=== PATIENT | female | born 2000 | race Caucasian/White ===

== ENCOUNTER 2022-11-13 23:16 | Inpatient (IN) ==
[2022-11-13] MEDS ORDERED: OXYTOCIN 30 UNITS/500 ML BAG IV PRN ×2 (23:43→23:46)
[2022-11-13] MEDS ORDERED: LIDOCAINE 1% LOCAL 20 ML VIAL INFIL PRN (23:43)
--- NOTE | 2022-11-13 23:43 | History & Physical Report ---
Date of Service November 13, 2022 Assessment & Plan (1) Premature rupture of membranes: Plan: Admit, routine labs, COVID swab Start oxytocin for augmentation Epidural if patient requests Anticipate spontaneous vaginal delivery (2) Anxiety and depression: Plan: Continue Wellbutrin 150 mg daily History of Present Illness Chief Complaint: LOF Primary Care Provider: Marco Soto PA-C Patient is 22-year-old -0-2-0 at 39 weeks and 0 days dated by last menstrual period consistent with 8-week ultrasound who presents for leaking of fluid. States she had a big cut of fluid at approximately 9:30 PM. Did have blood tinged discharge last night and this morning, denies heavy vaginal bleeding. Notes good movement. Is having irregular contractions. has been complicated by anxiety and depression which she is on Wellbutrin, and had an ASCUS with high risk HPV positive Pap Allergies Allergy/AdvReac Type Severity Reaction Status Date / Time No Known Allergies Allergy Unverified 11/13/22 23:25 Home Medications Medication Instructions Recorded Confirmed Type bupropion HCl 150 mg tablet,12 hr 150 mg PO DAILY 11/13/22 11/13/22 History sustained-release (Wellbutrin SR) calcium 250 mg tablet 200 mg PO DAILY 11/13/22 11/13/22 History folic acid 5 mg capsule 5 mg PO DAILY 11/13/22 11/13/22 History vit no.95-ferrous 1 tab PO DAILY 11/13/22 11/13/22 History fumarate 28 mg-folic acid 800 mcg tablet () Patient History Medical History Anxiety and depression Surgical History [place] teeth extracted Family History Grandmother (Paternal) Diabetes Grandmother (Maternal) Diabetes Social History Smoking Status: Former smoker Tobacco Type: E-cigarettes / Vaping Hx Alcohol Use: No Hx Substance Use: No Preferred Language: Upper Sorbian Beliefs That Will Affect Care: None marital status: Single marital status details: Trevor Hurt [phone] Current Living Situation: Significant Other current occupational status: employed current occupation: [employer] Other Information That Helps Us Care for You: No Feels Safe at Home: Yes Safety Concerns: Feels Safe At This Time Diet: regular Gender Identity: Female OB History SNAG GRINDER History Se record Review of Systems All systems reviewed & are unremarkable except as noted in HPI & below Physical Exam Constitutional: WD/WN, vitals as above Respiratory: normal respiratory effort, lungs clear to auscultation Cardiovascular: RRR, no murmur, no edema Gastrointestinal (Abdomen): normal bowel sounds, soft, nontender, no hepatosplenomegaly EFW 3200g Genitourinary: Sterile speculum exam: Grossly ruptured with clear fluid Cervix: 2/60/-3 anterior and soft cephalic IUPC placed without difficulty Monitoring External Monitor heart tracing: Baseline 150, moderate variability, positive accelerations no decelerations, currently category 1 tracing Tocodynamometer Irritable
[2022-11-13] MEDS: LACTATED RINGER'S 1,000 ML IV PRN (23:55)
[2022-11-14 00:28] LABS: Hematocrit (blood only) 34.1 % (37.0-47.0); Hemoglobin 11.9 g/dl (12.0-16.0); Mean Corpuscular Hgb Conc 34.9 g/dL (32.0-36.0); Mean Corpuscular Volume 83.2 fL (80.0-100.0); Platelet Count 195 K/uL (130-400); RDW Coefficient of Variation 13.2 % (11.5-14.5); RDW Standard Deviation 39.8 fL (36.4-46.3); White Blood Count 9.63 K/ul (4.8-10.8)
[2022-11-14] MEDS ORDERED: SODIUM CHLORIDE 0.9% PF INJ 10 ML VIAL ONE (00:48)
[2022-11-14] MEDS ORDERED: LIDOCAINE 2%/EPINEPHRINE 1:200,000 20 ML PF ONE (00:49)
[2022-11-14] MEDS ORDERED: fentaNYL 2MCG/ML ROPIVACAINE 1.25MG/ML 100 ML BAG EPI ONE (00:50)
[2022-11-14] MEDS ORDERED: fentaNYL citrate PF 100 MCG/2 ML VIAL ONE (00:51)
[2022-11-14] MEDS ORDERED: BUPIVACAINE 0.25% PF 30 ML VIAL ONE (00:51)
[2022-11-14] MEDS ORDERED: ePHEDrine sulfate 50 MG/ML AMP ONE (00:52)
[2022-11-14 01:10] LABS: Alanine Aminotransferase 8 U/L (7-52); Albumin Globulin Ratio 1.1 (0.9-2); Albumin Level 3.2 gm/dl (3.4-5.0); Alkaline Phosphatase 168 U/L (34-104); Anion Gap 9 (3-11); Aspartate Aminotransferase 15 U/L (13-39); BUN Creatinine Ratio 16.3 (10-20); Bilirubin,Total 0.2 mg/dl (0.2-1.0); Blood Urea Nitrogen 7 mg/dl (6-23); Calcium 8.1 mg/dl (8.6-10.3); Carbon Dioxide 20 mmol/L (21-32); Chloride 109 mmol/L (98-107); Creatinine Clr Calc Pharmacy 180.5 ml/min; Est GFR (African American) > 150.0 ml/min; Est GFR (Non-African American) 143.4 ml/min; Globulin 2.9 gm/dl (2.5-4.0); Glucose 101 mg/dl (70-99(Fasting)); Potassium 3.4 mmol/L (3.5-5.1); Sodium 138 mmol/L (136-145); Total Protein 6.1 gm/dl (6.0-8.3)
[2022-11-14 01:15] LABS: Total Protein Urine Random 16.5 mg/dl (0-11.9)
--- NOTE | 2022-11-14 01:15 | Anesthesiology Consultation ---
Date of Service November 14, 2022 Assessment & Plan Chart Review Chart Review: Acceptable Risk for Labor Epidural Consults Requested none ASA ASA2 Proposed Anesthesia Anesthesia Type: Labor Epidural Risk / Benefits Reviewed With: PT / POA / Parent / Guardian, Accepts Plan and Informed Consent Obtained History Height/Weight Height: 5 ft 2 in Weight: 65.317 kg Allergies Allergy/AdvReac Type Severity Reaction Status Date / Time No Known Allergies Allergy Unverified 11/13/22 23:25 Medications Home Medications Medication Instructions Recorded Confirmed Last Taken calcium 250 mg tablet 200 mg PO DAILY 11/13/22 11/13/22 11/11/22 09:00 folic acid 5 mg capsule 5 mg PO DAILY 11/13/22 11/13/22 11/11/22 09:00 vit no.95-ferrous 1 tab PO DAILY 11/13/22 11/13/22 11/11/22 09:00 fumarate 28 mg-folic acid 800 mcg tablet () bupropion HCl 150 mg 24 hr tablet, 150 mg PO DAILY 11/14/22 11/14/22 Unknown extended release Active Medications Generic Name Dose Route Start Last Admin Trade Name Freq PRN Reason Stop Dose Admin Lactated Ringer's 1,000 mls @ 125 mls/hr 11/13/22 23:43 11/14/22 00:42 Lr IV 11/15/22 23:42 999 mls/hr .Q8H PRN Infusion L&D Protocol Protocol NPO Date Last Intake of Fluids: 11/14/22 Time Last Intake of Fluids: 00:00 Date Last Intake of Solids: 11/13/22 Time Last Intake of Solids: 18:00 Past Medical History Medical History Anxiety and depression Exercise / Class Metabolic Activity II 4-5 Yardwork/Stairs/Walk up hill Past Family History Family History Grandmother (Paternal) Diabetes Grandmother (Maternal) Diabetes Past Surgical History Surgical History [place] teeth extracted Past Anesthesia History No Hx of Anesthesia Complications and No Family Hx of Anesthesia Complications History of PONV No Hx of PONV and No Hx of Motion Sickness Social History Smoking Status: Former smoker Hx Alcohol Use: No Hx Substance Use: No Physical Exam Vital Signs Last Vital Signs Temp 37.0 C 11/13/22 23:34 Pulse 80 11/14/22 01:10 Resp 18 11/13/22 23:34 BP 140/95 11/14/22 00:25 Pulse Ox 100 11/14/22 01:10 ENMT Mouth: no TMJ abnormality Thyromental Distance: > or= 3.5 Finger Breadths Mallampati Class: II Neck normal visual inspection and trachea midline; neck extension not limited Respiratory normal respiratory effort Auscultation: lungs clear to auscultation bilaterally Cardiovascular Rate/Rhythm: regular rate and regular rhythm Heart Sounds: no murmur Musculoskeletal Spine: normal cervical ROM Extremities: full ROM of extremities Neurologic moves all extremities Psychiatric Orientation: alert and oriented x 3 Testing Laboratory Results 11/13/22 23:54 11/14/22 00:01
[2022-11-14 01:20] LABS: Creatinine Urine Random 75.2 mg/dl; Protein Creatinine Ratio Urine 0.2 (0-0.2)
[2022-11-14] MEDS ORDERED: ROPIVACAINE 0.5% PF 5 MG/ML 20 ML VIAL EPI PRN (01:44)
[2022-11-14] MEDS ORDERED: NALOXONE HCL 0.4 MG/1 ML VIAL/CARP IV PRN (01:44)
[2022-11-14] MEDS ORDERED: fentaNYL 2MCG/ML ROPIVACAINE 1.25MG/ML 100 ML BAG EPI PRN (01:44)
[2022-11-14] MEDS ORDERED: ONDANSETRON INJ 2 MG/ML 2 ML VIAL IV PRN (01:44)
[2022-11-14] MEDS ORDERED: ePHEDrine sulfate 50 MG/ML AMP IV PRN (01:44)
[2022-11-14] MEDS ORDERED: SODIUM CHLORIDE 0.9% PF INJ 10 ML VIAL EPI STA (01:44)
[2022-11-14] MEDS ORDERED: BUPIVACAINE 0.25% PF 30 ML VIAL EPI PRN (01:44)
[2022-11-14] MEDS ORDERED: BUPIVACAINE 0.25% PF 30 ML VIAL EPI STA (01:44)
[2022-11-14] MEDS ORDERED: NALOXONE HCL 1 MG in SODIUM CHLORIDE 0.9% 1000ML 1,000 ML IV PRN (01:44)
[2022-11-14] MEDS ORDERED: diphenhydrAMINE 50 MG/ML VIAL IV PRN (01:44)
[2022-11-14] MEDS ORDERED: fentaNYL citrate PF 100 MCG/2 ML VIAL EPI STA (01:44)
[2022-11-14] MEDS ORDERED: NALBUPHINE HCL INJ 10 MG/ML AMP IV PRN (01:44)
[2022-11-14] MEDS ORDERED: fentaNYL citrate PF 100 MCG/2 ML VIAL EPI PRN (01:44)
[2022-11-14] MEDS ORDERED: SODIUM CHLORIDE 0.9% PF INJ 10 ML VIAL EPI PRN (01:44)
[2022-11-14] MEDS ORDERED: LIDOCAINE 2%/EPINEPHRINE 1:200,000 20 ML PF EPI STA (01:44)
[2022-11-14] MEDS ORDERED: METOCLOPRAMIDE HCL 20 MG in SODIUM CHLORIDE 0.9% 50 ML IV PRN (01:44)
[2022-11-14] MEDS ORDERED: LIDOCAINE 2% MPF LOCAL 5 ML VIAL EPI PRN (01:44)
[2022-11-14] MEDS: LACTATED RINGER'S 1,000 ML IV PRN (04:15)
[2022-11-14] MEDS ORDERED: CALCIUM CARBONATE 500 MG CHEWABLE TAB PO ONE (07:09)
[2022-11-14] MEDS ORDERED: DIPHTHERIA/TETANUS/PERTUSSIS 0.5mL SYR/VIAL (Age 7+yrs) IM ONE (07:49)
[2022-11-14] MEDS ORDERED: HYDROCORTISONE ACETATE 25 MG SUPP PR PRN (07:49)
[2022-11-14] MEDS ORDERED: OXYTOCIN 30 UNITS/500 ML BAG IV PRN (07:49)
[2022-11-14] MEDS ORDERED: BENZOCAINE 20% AER SPR 82.5 GM CAN EXT PRN (07:49)
[2022-11-14] MEDS ORDERED: bisacodyL 10 MG SUPP PR PRN (07:49)
--- NOTE | 2022-11-14 07:54 | Delivery Summary ---
Vaginal Delivery Summary Date of Service November 14, 2022 Vaginal Delivery Summary Delivery Note Patient admitted overnight with SROM and 2 cm. Declined Pitocin and made cervical change on her own to complete. Delivery Summary: Patient was placed in the dorsal lithotomy position. She was prepped and draped in the usual sterile fashion. Upon maternal pushing the head was delivered atraumatically followed by the anterior shoulders, posterior shoulders then the remainder of the infants body. Nuchal x1 with shoulder cord was removed. The was immediately placed on mother's abdomen, dried and stimulated. Delayed cord clamping for 60 seconds was performed. The infants mouth and nose were bulb suctioned by nursing staff. A female infant was delivered at 0733, weight pending with APGARS of 8 at 1 minute and 8 at 5 minutes. The infant was handed off to the awaiting nursing staff. Cord blood gases were not obtained. The placenta delivered intact with three vessel cord at 0740. Placenta was sent to pathology (hold). Thirty units of Pitocin were added to the IV fluid and allowed to run freely. Uterine massage was performed until uterus was deemed firm. Upon inspection of the perineum, vagina and cervix were intact. Second degree laceration was noted which was repaired with 2-0 vicryl in an interrupted fashion, and the remainder of the second-degree was pared with 3-0 Vicryl in the usual fashion. Upon re-inspection the patient was hemostatic. Uterus again massaged and found to be firm. Needle and sponge counts were correct. Patient was stable and allowed to recover in L&D room. was stable and remained in room with mother in the labor and delivery unit. EBL 300mls
[2022-11-14] MEDS ORDERED: buPROPion SR 150 MG TABCR PO SCH (09:00)
--- NOTE | 2022-11-14 09:18 | Anesthesia Procedure Note ---
Date of Service November 14, 2022 Anesthesia Post Epidural Note Vital Signs Vital Signs: Temp Pulse Resp BP Pulse Ox 37.0 C 72 20 101/53 L 97 11/14/22 07:15 11/14/22 09:06 11/14/22 07:30 11/14/22 09:06 11/14/22 07:46 Pain Intensity Bilateral Abdomen: Pain Intensity: 2 Notes Mental Status: alert / awake / arousable Nausea / Vomiting: adequately controlled Pain: adequately controlled Airway Patency, RR, SpO2: stable & adequate BP & HR: stable & adequate Hydration State: stable & adequate Neuraxial Anesthesia: was administered and sensory block is resolving Anesthetic Complications: no major complications apparent Epidural: Removed without complications and With tip intact
[2022-11-14] MEDS: IBUPROFEN 600 MG TAB PO PRN ×4 (09:30→23:23)
[2022-11-14] MEDS: buPROPion XL 150 MG TABCR PO SCH ×2 (11:13→14:33)
[2022-11-14] MEDS: FERROUS SULFATE 325 MG TAB PO SCH (11:13)
[2022-11-14] MEDS: PRENATAL VITAMIN 1 TAB PO SCH (11:13)
[2022-11-14] MEDS: DOCUSATE SODIUM 100 MG CAP PO SCH ×2 (11:13→20:27)
[2022-11-14] MEDS: ACETAMINOPHEN 325 MG TAB PO PRN ×2 (14:32→20:27)
[2022-11-15] MEDS: ACETAMINOPHEN 325 MG TAB PO PRN ×4 (03:20→23:12)
[2022-11-15] MEDS: IBUPROFEN 600 MG TAB PO PRN ×3 (06:16→18:48)
[2022-11-15 08:38] LABS: Hematocrit (blood only) 28.9 % (37.0-47.0); Hemoglobin 9.8 g/dl (12.0-16.0); Mean Corpuscular Hemoglobin 28.5 pg (25.0-34.0); Mean Corpuscular Hgb Conc 33.9 g/dL (32.0-36.0); Mean Platelet Volume 11.5 fL (9.4-12.4); Platelet Count 154 K/uL (130-400); RDW Coefficient of Variation 13.2 % (11.5-14.5); Red Blood Count 3.44 M/uL (4.20-5.40); White Blood Count 11.28 K/ul (4.8-10.8)
[2022-11-15] MEDS: PRENATAL VITAMIN 1 TAB PO SCH (08:58)
[2022-11-15] MEDS: DOCUSATE SODIUM 100 MG CAP PO SCH ×2 (08:58→20:39)
[2022-11-15] MEDS: FERROUS SULFATE 325 MG TAB PO SCH (08:58)
[2022-11-15] MEDS: buPROPion XL 150 MG TABCR PO SCH ×2 (08:59)
--- NOTE | 2022-11-15 11:13 | Obstetrical Progress Note ---
Date of Service November 15, 2022 Subjective Ambulation: ambulating normally Voiding: no voiding problems Passing Gas:: Yes Diet Tolerance:: regular diet Lochia:: Small Feeding Type:: bottle feeding Current Pain Level(1-10): 0 doing well. Physical Exam Constitutional WD/WN, vitals as above Gastrointestinal (Abdomen) soft and non-tender. fundus firm below U Musculoskeletal Extremities: extremities normal to inspection Skin no rashes, warm and dry Neurologic patellar DTR's 2+ bilat, sensation intact Psychiatric A+Ox3, euthymic affect Results & Data Vital Signs (Past 12 Hours) Vital Signs Temp Pulse Resp BP Pulse Ox O2 Del Method 11/15/22 08:30 36.8 C 69 16 107/66 Room Air 11/15/22 03:20 36.6 C 75 16 123/80 99 Room Air Laboratory Results 11/13/22 11/13/22 11/13/22 23:45 23:54 23:54 WBC 9.63 RBC 4.10 L Hgb 11.9 L Hct 34.1 L MCV 83.2 MCH 29.0 MCHC 34.9 RDW Std Deviation 39.8 RDW Coeff of Melecio 13.2 Plt Count 195 MPV 12.0 Sodium Potassium Chloride Carbon Dioxide Anion Gap BUN Creatinine Est Cr Clr Drug Dosing Est GFR ( Amer) Est GFR (Non-Af Amer) BUN/Creatinine Ratio Glucose Calcium Total Bilirubin AST ALT Alkaline Phosphatase Total Protein Albumin Globulin Albumin/Globulin Ratio Ur Random Creatinine U Random Total Protein Protein/Creatinin Ratio SARS-CoV-2, RNA, NAAT NEGATIVE Blood Type A Positive Antibody Screen NEGATIVE 11/14/22 11/14/22 11/15/22 00:01 00:39 08:15 WBC 11.28 H RBC 3.44 L Hgb 9.8 L Hct 28.9 L MCV 84.0 MCH 28.5 MCHC 33.9 RDW Std Deviation 40.0 RDW Coeff of Melecio 13.2 Plt Count 154 MPV 11.5 Sodium 138 Potassium 3.4 L Chloride 109 H Carbon Dioxide 20 L Anion Gap 9 BUN 7 Creatinine 0.43 L Est Cr Clr Drug Dosing 180.5 Est GFR ( Amer) > 150.0 Est GFR (Non-Af Amer) 143.4 BUN/Creatinine Ratio 16.3 Glucose 101 H Calcium 8.1 L Total Bilirubin 0.2 AST 15 ALT 8 Alkaline Phosphatase 168 H Total Protein 6.1 Albumin 3.2 L Globulin 2.9 Albumin/Globulin Ratio 1.1 Ur Random Creatinine 75.2 U Random Total Protein 16.5 H Protein/Creatinin Ratio 0.2 SARS-CoV-2, RNA, NAAT Blood Type Antibody Screen
[2022-11-15] MEDS ORDERED: bisacodyL 5 MG TABEC PO SCH (20:00)
[2022-11-16] MEDS ORDERED: diphenhydrAMINE Capsule 25 MG CAP PO STA (04:46)
[2022-11-16 06:36] LABS: Hematocrit (blood only) 29.2 % (37.0-47.0); Hemoglobin 10.1 g/dl (12.0-16.0)
[2022-11-16] MEDS: PRENATAL VITAMIN 1 TAB PO SCH (08:02)
[2022-11-16] MEDS: DOCUSATE SODIUM 100 MG CAP PO SCH (08:02)
[2022-11-16] MEDS: FERROUS SULFATE 325 MG TAB PO SCH (08:02)
[2022-11-16] MEDS: IBUPROFEN 600 MG TAB PO PRN (08:03)
[2022-11-16] MEDS: buPROPion XL 150 MG TABCR PO SCH ×2 (08:06→08:07)
--- NOTE | 2022-11-16 08:43 | Obstetrical Progress Note ---
Date of Service November 16, 2022 Assessment & Plan Admission and Anticipated Discharge Date Admission Date: November 13, 2022 Subjective Patient is seen and examined. She feels well, no complaints. Just tired from taking Benadryl last night. She has h/o depression and was on Wellbutrin, declined to start here. I offered her to restart but she still declines and desires to start when she will be discharged. She denies suicidal and homicidal thoughts. Declined psychiatry consultation. Wants to be discharged today. Ambulating without dizziness Voiding without difficulty Tolerating regular diet with out N&V Bleeding is minimal No fever/ chills/ CP/ SOB/ N&V/ Leg pain Bottle feeding without problems Vital Signs Temp Pulse Resp BP O2 Del Method 11/15/22 23:20 36.7 C 78 18 125/84 Room Air Lab Results 11/13/22 11/13/22 11/13/22 Range/Units 23:45 23:54 23:54 WBC (4.8-10.8) K/ul RBC (4.20-5.40) M/uL Hgb (12.0-16.0) g/dl Hct (37.0-47.0) % MCV (80.0-100.0) fL MCH (25.0-34.0) pg MCHC (32.0-36.0) g/dL RDW Std Deviation (36.4-46.3) fL RDW Coeff of Melecio (11.5-14.5) % Plt Count (130-400) K/uL MPV (9.4-12.4) fL Sodium (136-145) mmol/L Potassium (3.5-5.1) mmol/L Chloride (98-107) mmol/L Carbon Dioxide (21-32) mmol/L Anion Gap (3-11) BUN (6-23) mg/dl Creatinine (0.6-1.2) mg/dl Est Cr Clr Drug Dosing ml/min Est GFR ( Amer) ml/min Est GFR (Non-Af Amer) ml/min BUN/Creatinine Ratio (10-20) Glucose (70-99(Fasting)) mg/dl Calcium (8.6-10.3) mg/dl Total Bilirubin (0.2-1.0) mg/dl AST (13-39) U/L ALT (7-52) U/L Alkaline Phosphatase (34-104) U/L Total Protein (6.0-8.3) gm/dl Albumin (3.4-5.0) gm/dl Globulin (2.5-4.0) gm/dl Albumin/Globulin Ratio (0.9-2) Ur Random Creatinine mg/dl U Random Total Protein (0-11.9) mg/dl Protein/Creatinin Ratio (0-0.2) RPR Nonreactive (Nonreactive) SARS-CoV-2, RNA, NAAT NEGATIVE (NEGATIVE) Blood Type A Positive Antibody Screen NEGATIVE 11/13/22 11/14/22 11/14/22 Range/Units 23:54 00:01 00:39 WBC 9.63 (4.8-10.8) K/ul RBC 4.10 L (4.20-5.40) M/uL Hgb 11.9 L (12.0-16.0) g/dl Hct 34.1 L (37.0-47.0) % MCV 83.2 (80.0-100.0) fL MCH 29.0 (25.0-34.0) pg MCHC 34.9 (32.0-36.0) g/dL RDW Std Deviation 39.8 (36.4-46.3) fL RDW Coeff of Melecio 13.2 (11.5-14.5) % Plt Count 195 (130-400) K/uL MPV 12.0 (9.4-12.4) fL Sodium 138 (136-145) mmol/L Potassium 3.4 L (3.5-5.1) mmol/L Chloride 109 H (98-107) mmol/L Carbon Dioxide 20 L (21-32) mmol/L Anion Gap 9 (3-11) BUN 7 (6-23) mg/dl Creatinine 0.43 L (0.6-1.2) mg/dl Est Cr Clr Drug Dosing 180.5 ml/min Est GFR ( Amer) > 150.0 ml/min Est GFR (Non-Af Amer) 143.4 ml/min BUN/Creatinine Ratio 16.3 (10-20) Glucose 101 H (70-99(Fasting)) mg/dl Calcium 8.1 L (8.6-10.3) mg/dl Total Bilirubin 0.2 (0.2-1.0) mg/dl AST 15 (13-39) U/L ALT 8 (7-52) U/L Alkaline Phosphatase 168 H (34-104) U/L Total Protein 6.1 (6.0-8.3) gm/dl Albumin 3.2 L (3.4-5.0) gm/dl Globulin 2.9 (2.5-4.0) gm/dl Albumin/Globulin Ratio 1.1 (0.9-2) Ur Random Creatinine 75.2 mg/dl U Random Total Protein 16.5 H (0-11.9) mg/dl Protein/Creatinin Ratio 0.2 (0-0.2) RPR (Nonreactive) SARS-CoV-2, RNA, NAAT (NEGATIVE) Blood Type Antibody Screen 11/15/22 11/16/22 Range/Units 08:15 06:08 WBC 11.28 H (4.8-10.8) K/ul RBC 3.44 L (4.20-5.40) M/uL Hgb 9.8 L 10.1 L (12.0-16.0) g/dl Hct 28.9 L 29.2 L (37.0-47.0) % MCV 84.0 (80.0-100.0) fL MCH 28.5 (25.0-34.0) pg MCHC 33.9 (32.0-36.0) g/dL RDW Std Deviation 40.0 (36.4-46.3) fL RDW Coeff of Melecio 13.2 (11.5-14.5) % Plt Count 154 (130-400) K/uL MPV 11.5 (9.4-12.4) fL Sodium (136-145) mmol/L Potassium (3.5-5.1) mmol/L Chloride (98-107) mmol/L Carbon Dioxide (21-32) mmol/L Anion Gap (3-11) BUN (6-23) mg/dl Creatinine (0.6-1.2) mg/dl Est Cr Clr Drug Dosing ml/min Est GFR ( Amer) ml/min Est GFR (Non-Af Amer) ml/min BUN/Creatinine Ratio (10-20) Glucose (70-99(Fasting)) mg/dl Calcium (8.6-10.3) mg/dl Total Bilirubin (0.2-1.0) mg/dl AST (13-39) U/L ALT (7-52) U/L Alkaline Phosphatase (34-104) U/L Total Protein (6.0-8.3) gm/dl Albumin (3.4-5.0) gm/dl Globulin (2.5-4.0) gm/dl Albumin/Globulin Ratio (0.9-2) Ur Random Creatinine mg/dl U Random Total Protein (0-11.9) mg/dl Protein/Creatinin Ratio (0-0.2) RPR (Nonreactive) SARS-CoV-2, RNA, NAAT (NEGATIVE) Blood Type Antibody Screen PE: General: Alert, orientedx3, NAD Abd: soft, NT, fundus firm, below Umbilicus Perineum intact, Lochia rubra minimal Ext; NT, no edema AP: 22 yo s/p , ppd# 1 VSS Afebrile doing well Continue routine care Desires d/c today Discussed when to call All questions were answered D/C home, f/u in offcice Results & Data Vital Signs (Past 12 Hours) Vital Signs Temp Pulse Resp BP O2 Del Method 11/15/22 23:20 36.7 C 78 18 125/84 Room Air
== END 2022-11-16 14:40 | disposition home or self-care (01) | DRG 807 ==
LOC: OPB 23:16 → 4S1 23:19 → 4E2 11-14 11:15